=== PATIENT | male | born 1985 | race Caucasian/White ===

== ENCOUNTER 2024-02-23 17:41 | Inpatient (IN) ==
[2024-02-23 18:12] LABS: Basophils # (auto) 0.05 K/uL (0.00-0.20); Basophils % (auto) 0.4 %; Eosinophils % (auto) 2.9 %; Hematocrit (blood only) 45.8 % (42.0-52.0); Hemoglobin 15.2 g/dl (14.0-18.0); Immature Granulocytes # (auto) 0.08 K/uL (0.01-0.20); Immature Granulocytes % (auto) 0.6 %; Mean Corpuscular Hemoglobin 28.1 pg (25.0-34.0); Mean Corpuscular Hgb Conc 33.2 g/dL (32.0-36.0); Mean Corpuscular Volume 84.7 fL (80.0-100.0); Mean Platelet Volume 8.6 fL (9.4-12.4); Monocytes # (auto) 0.96 K/uL (0.11-0.59); Neutrophils % (auto) 68.1 %; Platelet Count 302 K/uL (130-400); RDW Coefficient of Variation 13.6 % (11.5-14.5); RDW Standard Deviation 41.7 fL (36.4-46.3); Red Blood Count 5.41 M/uL (4.70-6.10); White Blood Count 13.79 K/ul (4.8-10.8)
--- NOTE | 2024-02-23 18:17 | XRay Report ---
XR chest 1V not portable CLINICAL HISTORY: Chest pain, nonspecific TECHNIQUE: Single frontal radiograph of the chest was obtained. Comparison: Comparison is made to chest radiograph 12/14/2020 FINDINGS: No lines and tubes are seen. The cardiomediastinal silhouette is normal. The lungs are clear. No evid ence of pleural effusion or pneumothorax. IMPRESSION: No acute chest disease. ACT 112: Negative or not required by law. Electronically signed by: Jorge Franco M.D. 02/23/2024 6:15 PM
[2024-02-23 18:33] LABS: Albumin Level 4.6 gm/dl (3.4-5.0); BUN Creatinine Ratio 10.4 (10-20); Bilirubin,Total 0.4 mg/dl (0.2-1.0); Calcium 9.7 mg/dl (8.6-10.3); Creatinine Clr Calc Pharmacy 120.4 ml/min; Est GFR (African American) 92.4 ml/min; Est GFR (Non-African American) 79.7 ml/min; Globulin 4.4 gm/dl (2.5-4.0); Potassium 3.9 mmol/L (3.5-5.1)
[2024-02-23 18:39] LABS: Troponin I High Sensitivity 14.9 pg/ml (0-20)
[2024-02-23 18:41] LABS: INR 0.9 (0.9-1.1); Partial Thromboplastin Time 27 Seconds (21-31); Prothrombin Time 10.2 Seconds (9.0-12.0)
[2024-02-23] MEDS: hydrALAZINE HCL 20 MG/ML VIAL IV STA ×2 (19:04→20:24)
--- NOTE | 2024-02-23 19:06 | Emergency Department Note ---
Impression & Plan Acute dyspnea, Hypertensive urgency, Acute gout of left foot ED Provider Note HISTORY OF PRESENT ILLNESS: Patient is a 38-year-old male presenting with left great toe pain and hypertension. Patient reports he woke up at 2 AM from sleep with significant pain in his left great toe. He states that it hurts to bear weight on the foot secondary to pain at the base of the great toe. He denies ever having pain like this before. Denies any history of gout. He denies any fevers. He reports he went to acute care in [place] and they noted that his blood pressure was 200s over 130s and his heart rate was 110 to 118 bpm. He states he has a history of hypertension, but his pressures have never been higher than 170s. He states he has not taken his antihypertensives today, as he takes them in the evening. He denies any chest pain or shortness of breath. Denies any lightheadedness or dizziness. He denies any DVT or PE history. Denies any anticoagulation use. Denies any history of cardiac stents. ROS: as above PHYSICAL EXAM: Constitutional: Patient appears in no acute distress. HENT: Head: Normocephalic and atraumatic. Eyes: EOMI, PERRL Mouth/Throat: Mucous membranes moist. Neck: Trachea midline. Neck supple. Cardiovascular: Tachycardic with regular rhythm. No murmurs, rubs or gallops. Intact distal pulses. Pulmonary/Chest: No respiratory distress. Breath sounds clear and equal bilaterally. Patient is conversationally dyspneic. Abdominal: Abdomen soft, no tenderness, rebound or guarding. Musculoskeletal: - LLE: No obvious open wounds or deformity. No overlying erythema to the base of the great toe. Patient has palpable DP and PT pulses. Able to dorsiflex and plantarflex the ankle. Patient does have pain with passive range of motion of the great toe. Skin: Warm and dry. No rash, erythema, pallor or cyanosis Psychiatric: Appropriate mood and affect for situation. Neurological: Alert and keenly responsive. CN II-XII grossly intact, moving all extremities equally and fully. MDM: - Vitals signs showed hypertension and tachycardia - History obtained via patient. History as above. - Chronic conditions affecting care: HTN; hypothyroidism - Differential diagnoses include, but are not limited to: PE; pneumonia; ACS; gout; foot fracture - Order placed for continuous cardiac monitoring. At this time, monitor showed rate of 78 bpm with normal sinus rhythm, per my interpretation. - External medical records reviewed. [facility] orthopedic note dated 11/16/2020 was reviewed. Patient follow-up in their clinic for trochanteric bursitis of the left hip - EKG interpreted by myself showed normal sinus rhythm. Rate tachycardic at 113 bpm. QT 346. No acute ischemic changes. - Laboratory workup interpreted by myself showed leukocytosis (WBC 13.79); normal PT/INR; stable electrolytes; normal troponin; normal creatinine - CXR negative for pneumonia, per my interpretation - Patient given 40 mg IV solumedrol and 50 mg IV benadryl for pretreatment for CT scan. - CT PE negative for PE. - Patient initially given 10 mg IV hydralazine and 50 mcg IV fentanyl for HTN and pain, with little improvement in BP. - Given an additional 10 mg IV hydralazine, home 100 mg losaratan and 100 mg IV lopressor. BPs remained >190s systolic - Discussion was had with residential case manager about patient's case and need for admission - Hospitalist consulted for admission - Patient admitted to [facility] hospitalist service for further evaluation and management. ASSESSMENT AND PLAN: Diagnosis: acute dyspnea; acute gout of left foot; HTN urgency Plan: admit Past Med/Surg History Problem List (Updated 02/23/24 @ 22:43 by Ruby Tobin MD) Acute gout of left foot (Acute) Hypertensive urgency (Acute) Acute dyspnea (Acute) History of bursectomy endoscopic left hip December 2020 Encounter for pre-operative examination Strep throat Left hip pain Greater trochanteric bursitis of left hip Left carpal tunnel syndrome Trochanteric bursitis, left hip Hypothyroidism (Chronic) Medical History (Updated 02/23/24 @ 22:43 by Ruby Tobin MD) Morbid obesity Carpal tunnel syndrome of left wrist Migraine hx Sleep apnea CPAP (compliant) Surgical History (Updated 01/02/21 @ 12:47 by Daniel Rojo MD) History of cardiac cath 2018 > "widely patent and normal coronary anatomy" History of tooth extraction WTE History of cystoscopy + urethral dilitation History of colonoscopy Hx of tonsillectomy Family History Mother Diabetes Grandfather (Maternal) Diabetes Grandmother (Paternal) Diabetes Grandmother (Maternal) Diabetes Family hx of colon cancer Aunt Diabetes Aunt Diabetes Uncle Diabetes Aunt Diabetes Other Stroke Social History Smoking Status: Never smoker Second Hand Exposure: No; Do You Dip or Chew Tobacco: No; Hx Alcohol Use: Yes Alcohol type: beer Hx Substance Use: No Preferred Language: Russian Communication Ability: Effective 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 Beliefs That Will Affect Care: None Current Living Situation: Alone and Family Feels Safe at Home: Yes Assistive Devices: Glasses Allergies Allergies Allergy/AdvReac Type Severity Reaction Status Date / Time Iodinated Contrast Media Allergy Intermediate Hives Verified 02/23/24 19:05 oxycodone Allergy Intermediate Hives Verified 02/23/24 19:05 Home Meds Home Medications Medication Instructions Recorded Confirmed loratadine 10 mg tablet (Claritin) 10 mg PO DAILY 12/20/20 02/23/24 chlorthalidone 25 mg tablet 25 mg PO QAM 02/23/24 02/23/24 levothyroxine 200 mcg tablet 200 mcg PO QAM 02/23/24 02/23/24 losartan 100 mg tablet 100 mg PO DAILY 02/23/24 02/23/24 metoprolol succinate 100 mg 100 mg PO DAILY 02/23/24 02/23/24 tablet,extended release 24 hr ondansetron HCl 8 mg tablet 8 mg PO TID PRN Nausea And Vomiting 02/23/24 02/23/24 Results & Data (ED) Vital Signs Vital Signs - 24 hr 02/23/24 17:44 02/23/24 19:02 02/23/24 19:02 Temperature 36.7 C Temperature Source Temporal Artery Scan Pulse Rate 112 H Pulse Rate [Apical] 106 H Respiratory Rate 18 23 Respiratory Effort / Characteristics Non-Labored Spontaneous Respiratory Depth Normal Blood Pressure 226/156 H Blood Pressure [Left Arm] 189/126 H Blood Pressure Mean 179 Blood Pressure Mean [Left Arm] 147 Blood Pressure Position Sitting Pulse Oximetry 96 94 Oxygen Delivery Method Room Air Room Air Room Air Sepsis Recent Fever Within 48 Hours No Sepsis New/Unexplained Change in Mental Status No Sepsis Action Taken by Nursing No Action Required 02/23/24 19:03 02/23/24 19:27 02/23/24 19:30 Temperature Temperature Source Pulse Rate 102 H Pulse Rate [Apical] 110 H Respiratory Rate 17 Respiratory Effort / Characteristics Respiratory Depth Blood Pressure Blood Pressure [Left Arm] 154/123 H Blood Pressure Mean Blood Pressure Mean [Left Arm] 133 Blood Pressure Position Pulse Oximetry 95 96 Oxygen Delivery Method Room Air Room Air Sepsis Recent Fever Within 48 Hours Sepsis New/Unexplained Change in Mental Status Sepsis Action Taken by Nursing 02/23/24 20:23 02/23/24 20:51 02/23/24 21:00 Temperature Temperature Source Pulse Rate Pulse Rate [Apical] 98 H 97 H 91 H Respiratory Rate 18 Respiratory Effort / Characteristics Respiratory Depth Blood Pressure Blood Pressure [Left Arm] 207/136 H 197/104 H 191/99 H Blood Pressure Mean Blood Pressure Mean [Left Arm] 159 135 129 Blood Pressure Position Pulse Oximetry 95 Oxygen Delivery Method Room Air Sepsis Recent Fever Within 48 Hours Sepsis New/Unexplained Change in Mental Status Sepsis Action Taken by Nursing 02/23/24 21:56 Temperature Temperature Source Pulse Rate Pulse Rate [Apical] 78 Respiratory Rate Respiratory Effort / Characteristics Respiratory Depth Blood Pressure Blood Pressure [Left Arm] 165/110 H Blood Pressure Mean Blood Pressure Mean [Left Arm] 128 Blood Pressure Position Pulse Oximetry Oxygen Delivery Method Sepsis Recent Fever Within 48 Hours Sepsis New/Unexplained Change in Mental Status Sepsis Action Taken by Nursing Laboratory Data 02/23/24 17:55 02/23/24 17:55 Lab Results 02/23/24 Range/Units 17:55 WBC 13.79 H (4.8-10.8) K/ul RBC 5.41 (4.70-6.10) M/uL Hgb 15.2 (14.0-18.0) g/dl Hct 45.8 (42.0-52.0) % MCV 84.7 (80.0-100.0) fL MCH 28.1 (25.0-34.0) pg MCHC 33.2 (32.0-36.0) g/dL RDW Std Deviation 41.7 (36.4-46.3) fL RDW Coeff of Roe 13.6 (11.5-14.5) % Plt Count 302 (130-400) K/uL MPV 8.6 L (9.4-12.4) fL Immature Gran % (Auto) 0.6 % Neut % (Auto) 68.1 % Lymph % (Auto) 21.0 % [place] % (Auto) 7.0 % Eos % (Auto) 2.9 % Baso % (Auto) 0.4 % Neut # (Auto) 9.40 H (1.40-6.50) K/uL Lymph # (Auto) 2.90 (1.20-3.40) K/uL [place] # (Auto) 0.96 H (0.11-0.59) K/uL Eos # (Auto) 0.40 (0.00-0.50) K/uL Baso # (Auto) 0.05 (0.00-0.20) K/uL Immature Gran # (Auto) 0.08 (0.01-0.20) K/uL PT 10.2 (9.0-12.0) Seconds INR 0.9 (0.9-1.1) APTT 27 (21-31) Seconds PTT Ratio 1.0 Sodium 139 (136-145) mmol/L Potassium 3.9 (3.5-5.1) mmol/L Chloride 104 (98-107) mmol/L Carbon Dioxide 27 (21-32) mmol/L Anion Gap 8 (3-11) BUN 12 (6-23) mg/dl Creatinine 1.15 (0.6-1.4) mg/dl Est Cr Clr Drug Dosing 120.4 ml/min Est GFR ( Amer) 92.4 ml/min Est GFR (Non-Af Amer) 79.7 ml/min BUN/Creatinine Ratio 10.4 (10-20) Glucose 89 (70-99(Fasting)) mg/dl Calcium 9.7 (8.6-10.3) mg/dl Total Bilirubin 0.4 (0.2-1.0) mg/dl AST 26 (13-39) U/L ALT 27 (7-52) U/L Alkaline Phosphatase 73 (34-104) U/L Troponin I High Sens 14.9 (0-20) pg/ml Total Protein 9.0 H (6.0-8.3) gm/dl Albumin 4.6 (3.4-5.0) gm/dl Globulin 4.4 H (2.5-4.0) gm/dl Albumin/Globulin Ratio 1.0 (0.9-2) Administered Medications Discontinued Medications Diphenhydramine HCl (Diphenhydramine 50 Mg/Ml Vial) 25 mg IV NOW STA Stop: 02/23/24 18:13 Last Admin: 02/23/24 19:27 Dose: 25 mg Documented By: COREY Fentanyl Citrate (Fentanyl Citrate Pf 100 Mcg/2 Ml Vial) 50 mcg IV NOW STA Stop: 02/23/24 19:04 Last Admin: 02/23/24 19:17 Dose: 50 mcg Documented By: COREY Hydralazine HCl (Hydralazine Hcl 20 Mg/Ml Vial) 10 mg IV NOW STA Stop: 02/23/24 18:44 Last Admin: 02/23/24 19:04 Dose: 10 mg Documented By: COREY Hydralazine HCl (Hydralazine Hcl 20 Mg/Ml Vial) 10 mg IV NOW STA Stop: 02/23/24 20:12 Last Admin: 02/23/24 20:24 Dose: 10 mg Documented By: COREY Ioversol (Optiray 320 125ml) 107 ml IV ONCE ONE Stop: 02/23/24 19:49 Last Admin: 02/23/24 19:48 Dose: 107 ml Documented By: MAU Losartan Potassium (Losartan Potassium 50 Mg Tab) 100 mg PO NOW STA Stop: 02/23/24 20:11 Last Admin: 02/23/24 20:26 Dose: 100 mg Documented By: COREY Methylprednisolone (Methylprednisolone 125 Mg/2 Ml Vial) 40 mg IV NOW STA Stop: 02/23/24 18:13 Last Admin: 02/23/24 19:30 Dose: 40 mg Documented By: COREY Metoprolol Tartrate (Metoprolol Tartrate 100 Mg Tab) 100 mg PO NOW STA Stop: 02/23/24 20:11 Last Admin: 02/23/24 20:26 Dose: 100 mg Documented By: COREY Imaging Data Radiologist's Impression: Chest X-Ray 02/23/24 17:48 XR chest 1V not portable CLINICAL HISTORY: Chest pain, nonspecific TECHNIQUE: Single frontal radiograph of the chest was obtained. Comparison: Comparison is made to chest radiograph 12/14/2020 FINDINGS: No lines and tubes are seen. The cardiomediastinal silhouette is normal. The lungs are clear. No evidence of pleural effusion or pneumothorax. IMPRESSION: No acute chest disease. ACT 112: Negative or not required by law. Electronically signed by: Jorge Franco M.D. 02/23/2024 6:15 PM Chest CTA 02/23/24 18:12 Exam(s): CTA CHEST IV Amt: 107 ml opti 320 EXAM: CT Angiography Chest With Intravenous Contrast CLINICAL HISTORY: Reason for exam: PE. TECHNIQUE: Axial computed tomographic angiography images of the chest with intravenous contrast. CTDI is 50 mGy and DLP is 1055.95 mGy-cm. Automated exposure control was utilized for the study. A dose lowering technique was utilized adhering to the principles of ALARA. MIP reconstructed images were created and reviewed. COMPARISON: No relevant prior studies available. FINDINGS: Pulmonary arteries: The pulmonary arterial tree is well opacified with contrast. No pulmonary embolism is identified. Aorta: The thoracic aorta is nondilated. There is no aneurysm or dissection. Superior vena cava: Incidental note is made of a left-sided superior vena cava. This is a normal variant. Lungs: The lungs are clear. There is mild vascular congestion and a trace amount of bibasilar subsegmental atelectasis, less likely edema. No mass. Pleural space: Unremarkable. No significant effusion. No pneumothorax. Heart: The heart is borderline enlarged. No pericardial effusion is seen. No evidence of RV dysfunction. Bones/joints: Mild degenerative changes throughout the spine. No acute fracture or subluxation is seen. Soft tissues: Unremarkable. Lymph nodes: Unremarkable. No enlarged lymph nodes. Liver: Fatty infiltration of the liver. IMPRESSION: 1. The lungs are clear. There is mild vascular congestion and a trace amount of bibasilar subsegmental atelectasis, less likely edema. 2. The pulmonary arterial tree is well opacified with contrast. No pulmonary embolism is identified. 3. The thoracic aorta is nondilated. There is no aneurysm or dissection. Electronically signed by: Elmer Loo MD 02/23/24 20:38 PM Discharge Plan Visit Data Chief Complaint: Cardiac Assessment Stated Complaint: TACHYCARDIA, HIGH BP ED Provider: Ruby Tobin Discharge Problem: Acute dyspnea, Hypertensive urgency, Acute gout of left foot Forms Stand Alone Forms: [facility] Labs Prescriptions Prescriptions: No Action loratadine [Claritin] 10 mg Tablet 10 mg PO DAILY Rx Instructions: Unable to verify with patient at this date/time ondansetron HCl 8 mg tablet 8 mg PO TID PRN (Reason: Nausea And Vomiting) metoprolol succinate 100 mg tablet extended release 24 hr 100 mg PO DAILY chlorthalidone 25 mg tablet 25 mg PO QAM levothyroxine 200 mcg tablet 200 mcg PO QAM losartan 100 mg tablet 100 mg PO DAILY Referrals Referrals: Emily Marshall MD [Primary Care Provider] -
[2024-02-23] MEDS: fentaNYL citrate PF 100 MCG/2 ML VIAL IV STA (19:17)
[2024-02-23] MEDS: diphenhydrAMINE 50 MG/ML VIAL IV STA (19:27)
[2024-02-23] MEDS: methylPREDNISolone 125 MG/2 ML VIAL IV STA (19:30)
[2024-02-23] MEDS: OPTIRAY 320 125ml IV ONE (19:48)
[2024-02-23] MEDS: METOPROLOL TARTRATE 100 MG TAB PO STA (20:26)
[2024-02-23] MEDS: LOSARTAN POTASSIUM 50 MG TAB PO STA (20:26)
--- NOTE | 2024-02-23 20:39 | CT Scan Report ---
Exam(s): CTA CHEST IV Amt: 107 ml opti 320 EXAM: CT Angiography Chest With Intravenous Contrast CLINICAL HISTORY: Reason for exam: PE. TECHNIQUE: Axial computed tomographic angiography images of the chest with intravenous contrast. CTDI is 50 mGy and DLP is 1055.95 mGy-cm. Automated exposure control was utilized for the study. A dose lowering technique was utilized adhering to the principles of ALARA. MIP reconstructed images were created and reviewed. COMPARISON: No relevant prior studies available. FINDINGS: Pulmonary arteries: The pulmonary arterial tree is well opacified with contrast. No pulmonary embolism is identified. Aorta: The thoracic aorta is nondilated. There is no aneurysm or dissection. Superior vena cava: Incidental note is made of a left-sided superior vena cava. This is a normal variant. Lungs: The lungs are clear. There is mild vascular congestion and a trace amount of bibasilar subsegmental atelectasis, less likely edema. No mass. Pleural space: Unremarkable. No significant effusion. No pneumothorax. Heart: The heart is borderline enlarged. No pericardial effusion is seen. No evidence of RV dysfunction. Bones/joints: Mild degenerative changes throughout the spine. No acute fracture or subluxation is seen. Soft tissues: Unremarkable. Lymph nodes: Unremarkable. No enlarged lymph nodes. Liver: Fatty infiltration of the liver. IMPRESSION: 1. The lungs are clear. There is mild vascular congestion and a trace amount of bibasilar subsegmental atelectasis, less likely edema. 2. The pulmonary arterial tree is well opacified with contrast. No pulmonary embolism is identified. 3. The thoracic aorta is nondilated. There is no aneurysm or dissection. Electronically signed by: Elmer Loo MD 02/23/24 20:38 PM
--- NOTE | 2024-02-23 22:36 | History & Physical Report ---
Date of Service February 23, 2024 Assessment & Plan (1) Acute gout of left foot: Plan: Suspect pain in left foot is secondary to acute gout. Patient with no history of gout -Admit to medical -[facility] for acute gout - 1.2mg po now followed by 0.6mg in one hour then 0.6mg po BID -Check serum Uric Acid level -Tylenol PRN (2) Hypertensive urgency: Plan: Patient reports compliance with his antihypertensive medications. Blood pressure still 150-160's at home typically. He is on Chlorthalidone, Losartan and Metoprolol at present. Hypertensive urgency. No evidence of end-organ damage. -Will hold Chlorthalidone for now -Continue Losartan and Metoprolol -Hydralazine 10 mg po TID as needed for blood pressure > 180/110 -Will check Mg, Aldosterone level and Plasma Renin Activity -Continue BiPAP qHS (3) Hypothyroidism: Plan: Patient reports noncompliance with his Synthroid - difficulty timing this medication -Check TSH -Continue Synthroid (4) Sleep apnea: Plan: Chronic. Patient reports compliance with his BiPAP qHS -Continue BiPAP History of Present Illness Chief Complaint: toe pain Primary Care Provider: Emily Marshall MD Brett Vidales is a 38yo male with history of poorly controlled HTN, HUSSAIN on nocturnal BiPAP and Hypothyroidism presenting from home with complaint of acute onset of left great toe pain and hypertension. Patient reports acute onset of severe pain in the left great toe at the MTP joint beginning this AM 02/23/24 at 02:00. He took some Ibuprofen without improvement in pain. Patient was able to put his shoes and work today but he had a lot of discomfort. He denies trauma. No history of Gout. No additional joint pain. Patient was seen at Urgent Care today and had an elevated HR and blood pressure of 200's/130's therefore was sent to the ER. He reports that his blood pressure is typically 150-160 at home with his medication. He is compliant with his antihypertensives. He denies headache, blurry vision, focal neurologic complaints. No chest pain, SOB or back pain. No fever, chills. No additional complaints. In the ER patient hypertensive. ER Course: Metoprolol 100mg PO Losartan 100mg PO Hydralazine 10mg IV Solumedrol 40mg IV Benadryl 25mg IV Fentanyl 50mcg IV Hydralazine 10mg IV Allergies Allergy/AdvReac Type Severity Reaction Status Date / Time Iodinated Contrast Media Allergy Intermediate Hives Verified 02/23/24 19:05 oxycodone Allergy Intermediate Hives Verified 02/23/24 19:05 Home Medications Medication Instructions Recorded Confirmed Type loratadine 10 mg tablet (Claritin) 10 mg PO DAILY 12/20/20 02/23/24 History chlorthalidone 25 mg tablet 25 mg PO QAM 02/23/24 02/23/24 History levothyroxine 200 mcg tablet 200 mcg PO QAM 02/23/24 02/23/24 History losartan 100 mg tablet 100 mg PO DAILY 02/23/24 02/23/24 History metoprolol succinate 100 mg 100 mg PO DAILY 02/23/24 02/23/24 History tablet,extended release 24 hr ondansetron HCl 8 mg tablet 8 mg PO TID PRN Nausea And Vomiting 02/23/2402/22 History Past Med/Surg History Problem List Acute gout of left foot (Acute) Hypertensive urgency (Acute) Acute dyspnea (Acute) History of bursectomy endoscopic left hip December 2020 Encounter for pre-operative examination Strep throat Left hip pain Greater trochanteric bursitis of left hip Left carpal tunnel syndrome Trochanteric bursitis, left hip Hypothyroidism (Chronic) Medical History Morbid obesity Carpal tunnel syndrome of left wrist Migraine hx Sleep apnea CPAP (compliant) Surgical History History of cardiac cath 2018 > "widely patent and normal coronary anatomy" History of tooth extraction WTE History of cystoscopy + urethral dilitation History of colonoscopy Hx of tonsillectomy Family History Mother Diabetes Grandfather (Maternal) Diabetes Grandmother (Paternal) Diabetes Grandmother (Maternal) Diabetes Family hx of colon cancer Aunt Diabetes Aunt Diabetes Uncle Diabetes Aunt Diabetes Other Stroke Social History Smoking Status: Never smoker Second Hand Exposure: No; Do You Dip or Chew Tobacco: No; Hx Alcohol Use: Yes Alcohol type: beer Hx Substance Use: No Preferred Language: Jamaican Communication Ability: Effective [employer] Director Required: No Beliefs That Will Affect Care: None Current Living Situation: Alone and Family Feels Safe at Home: Yes Assistive Devices: Glasses Review of Systems Review of Systems: All systems reviewed & are unremarkable except as noted in HPI & below Physical Exam Physical Exam: General: patient resting comfortably, NAD, non-toxic in appearance, AA&O x 4 Skin: warm, dry, intact, no rashes or lesions HEENT: NC/AT, PERRL, EOMI, anicteric sclera, conjunctiva without injection, external ear normal to inspection and nontender, nares patent, moist mucus membranes, dentition intact, no oropharyngeal lesions, neck supple, trachea midline, no LAD, no thyromegaly, no JVD Heart: +S1/S2, regular, no m/r/g Lungs: equal air entry bilaterally, no rales/rhonchi/wheezes Abd: +BS, soft, NT/ND, no masses/organomegaly/ascites Ext: warm, 2+ pulses in UE/LE bilaterally, no clubbing/cyanosis or edema Warmth and redness of left great toe at MTP joint. Exquisite tenderness to palpation. No cellulitis. Neuro: nonfocal, patient AA&O x 4, speech intact, no facial droop, moving all extremities on command with equal strength 5/5 Results & Data Results & Data Vital Signs (Past 12 Hours) Vital Signs Temp Pulse Pulse Resp BP BP Pulse Ox 02/23/24 21:56 78 165/110 H 02/23/24 21:00 91 H 18 191/99 H 95 02/23/24 20:51 97 H 197/104 H 02/23/24 20:23 98 H 207/136 H 02/23/24 19:30 102 H 02/23/24 19:27 110 H 17 154/123 H 96 02/23/24 19:03 95 02/23/24 19:02 02/23/24 19:02 106 H 23 189/126 H 94 02/23/24 17:44 36.7 C 112 H 18 226/156 H 96 O2 Del Method 02/23/24 21:56 02/23/24 21:00 Room Air 02/23/24 20:51 02/23/24 20:23 02/23/24 19:30 02/23/24 19:27 Room Air 02/23/24 19:03 Room Air 02/23/24 19:02 Room Air 02/23/24 19:02 Room Air 02/23/24 17:44 Room Air Laboratory Results Laboratory Results WBC 13.79 K/ul (4.8-10.8) H 02/23/24 17:55 RBC 5.41 M/uL (4.70-6.10) 02/23/24 17:55 Hgb 15.2 g/dl (14.0-18.0) 02/23/24 17:55 Hct 45.8 % (42.0-52.0) 02/23/24 17:55 MCV 84.7 fL (80.0-100.0) 02/23/24 17:55 MCH 28.1 pg (25.0-34.0) 02/23/24 17:55 MCHC 33.2 g/dL (32.0-36.0) 02/23/24 17:55 RDW Std Deviation 41.7 fL (36.4-46.3) 02/23/24 17:55 RDW Coeff of Roe 13.6 % (11.5-14.5) 02/23/24 17:55 Plt Count 302 K/uL (130-400) 02/23/24 17:55 MPV 8.6 fL (9.4-12.4) L 02/23/24 17:55 Immature Gran % (Auto) 0.6 % 02/23/24 17:55 Neut % (Auto) 68.1 % 02/23/24 17:55 Lymph % (Auto) 21.0 % 02/23/24 17:55 [place] % (Auto) 7.0 % 02/23/24 17:55 Eos % (Auto) 2.9 % 02/23/24 17:55 Baso % (Auto) 0.4 % 02/23/24 17:55 Neut # (Auto) 9.40 K/uL (1.40-6.50) H 02/23/24 17:55 Lymph # (Auto) 2.90 K/uL (1.20-3.40) 02/23/24 17:55 [place] # (Auto) 0.96 K/uL (0.11-0.59) H 02/23/24 17:55 Eos # (Auto) 0.40 K/uL (0.00-0.50) 02/23/24 17:55 Baso # (Auto) 0.05 K/uL (0.00-0.20) 02/23/24 17:55 Immature Gran # (Auto) 0.08 K/uL (0.01-0.20) 02/23/24 17:55 PT 10.2 Seconds (9.0-12.0) 02/23/24 17:55 INR 0.9 (0.9-1.1) 02/23/24 17:55 APTT 27 Seconds (21-31) 02/23/24 17:55 PTT Ratio 1.0 02/23/24 17:55 Sodium 139 mmol/L (136-145) 02/23/24 17:55 Potassium 3.9 mmol/L (3.5-5.1) 02/23/24 17:55 Chloride 104 mmol/L (98-107) 02/23/24 17:55 Carbon Dioxide 27 mmol/L (21-32) 02/23/24 17:55 Anion Gap 8 (3-11) 02/23/24 17:55 BUN 12 mg/dl (6-23) 02/23/24 17:55 Creatinine 1.15 mg/dl (0.6-1.4) 02/23/24 17:55 Est Cr Clr Drug Dosing 120.4 ml/min 02/23/24 17:55 Est GFR ( Amer) 92.4 ml/min 02/23/24 17:55 Est GFR (Non-Af Amer) 79.7 ml/min 02/23/24 17:55 BUN/Creatinine Ratio 10.4 (10-20) 02/23/24 17:55 Glucose 89 mg/dl (70-99(Fasting)) 02/23/24 17:55 Calcium 9.7 mg/dl (8.6-10.3) 02/23/24 17:55 Total Bilirubin 0.4 mg/dl (0.2-1.0) 02/23/24 17:55 AST 26 U/L (13-39) 02/23/24 17:55 ALT 27 U/L (7-52) 02/23/24 17:55 Alkaline Phosphatase 73 U/L (34-104) 02/23/24 17:55 Troponin I High Sens 14.9 pg/ml (0-20) 02/23/24 17:55 Total Protein 9.0 gm/dl (6.0-8.3) H 02/23/24 17:55 Albumin 4.6 gm/dl (3.4-5.0) 02/23/24 17:55 Globulin 4.4 gm/dl (2.5-4.0) H 02/23/24 17:55 Albumin/Globulin Ratio 1.0 (0.9-2) 02/23/24 17:55 Impressions Chest X-Ray 02/23/24 17:48 XR chest 1V not portable CLINICAL HISTORY: Chest pain, nonspecific TECHNIQUE: Single frontal radiograph of the chest was obtained. Comparison: Comparison is made to chest radiograph 12/14/2020 FINDINGS: No lines and tubes are seen. The cardiomediastinal silhouette is normal. The lungs are clear. No evidence of pleural effusion or pneumothorax. IMPRESSION: No acute chest disease. ACT 112: Negative or not required by law. Electronically signed by: Jorge Franco M.D. 02/23/2024 6:15 PM Chest CTA 02/23/24 18:12 Exam(s): CTA CHEST IV Amt: 107 ml opti 320 EXAM: CT Angiography Chest With Intravenous Contrast CLINICAL HISTORY: Reason for exam: PE. TECHNIQUE: Axial computed tomographic angiography images of the chest with intravenous contrast. CTDI is 50 mGy and DLP is 1055.95 mGy-cm. Automated exposure control was utilized for the study. A dose lowering technique was utilized adhering to the principles of ALARA. MIP reconstructed images were created and reviewed. COMPARISON: No relevant prior studies available. FINDINGS: Pulmonary arteries: The pulmonary arterial tree is well opacified with contrast. No pulmonary embolism is identified. Aorta: The thoracic aorta is nondilated. There is no aneurysm or dissection. Superior vena cava: Incidental note is made of a left-sided superior vena cava. This is a normal variant. Lungs: The lungs are clear. There is mild vascular congestion and a trace amount of bibasilar subsegmental atelectasis, less likely edema. No mass. Pleural space: Unremarkable. No significant effusion. No pneumothorax. Heart: The heart is borderline enlarged. No pericardial effusion is seen. No evidence of RV dysfunction. Bones/joints: Mild degenerative changes throughout the spine. No acute fracture or subluxation is seen. Soft tissues: Unremarkable. Lymph nodes: Unremarkable. No enlarged lymph nodes. Liver: Fatty infiltration of the liver. IMPRESSION: 1. The lungs are clear. There is mild vascular congestion and a trace amount of bibasilar subsegmental atelectasis, less likely edema. 2. The pulmonary arterial tree is well opacified with contrast. No pulmonary embolism is identified. 3. The thoracic aorta is nondilated. There is no aneurysm or dissection. Electronically signed by: Elmer Loo MD 02/23/24 20:38 PM PG Care Time/CCT Total # of Minutes Spent Total Time Spent with Patient: Total time spent is greater than 50% in coordination of care (as documented) at patient's floor/unit and/or counseling patient: Coding Level of Care Code 49088 INT INP/OBS CARE 3/75MIN Diagnoses Acute gout of left foot M10.9 Hypertensive urgency I16.0 Hypothyroidism E03.9 Sleep apnea G47.30
[2024-02-24] MEDS ORDERED: ACETAMINOPHEN 325 MG TAB PO PRN (01:16)
[2024-02-24] MEDS ORDERED: ONDANSETRON INJ 2 MG/ML 2 ML VIAL IV PRN (01:16)
[2024-02-24] MEDS: fentaNYL citrate PF 100 MCG/2 ML VIAL IV ONE (01:20)
[2024-02-24 01:38] LABS: Magnesium 2.3 mg/dl (1.7-2.4); Uric Acid 7.4 mg/dl (2.6-7.2)
[2024-02-24] MEDS: hydrALAZINE 10 MG TAB PO PRN (01:43)
[2024-02-24] MEDS: COLCHICINE 0.6 MG TAB PO ONE ×2 (01:43→02:59)
[2024-02-24 01:53] LABS: Thyroid Stimulating Hormone 10.188 uIu/ml (0.300-4.500)
[2024-02-24 02:29] LABS: T4 Free Thyroxine 0.58 ng/dl (0.61-1.60)
[2024-02-24] MEDS: LEVOTHYROXINE SODIUM 200 MCG TABLET PO SCH (05:59)
[2024-02-24 06:14] LABS: Hematocrit (blood only) 43.2 % (42.0-52.0); Hemoglobin 14.6 g/dl (14.0-18.0); Mean Corpuscular Hemoglobin 28.5 pg (25.0-34.0); Mean Corpuscular Hgb Conc 33.8 g/dL (32.0-36.0); Mean Corpuscular Volume 84.2 fL (80.0-100.0); Mean Platelet Volume 8.9 fL (9.4-12.4); Platelet Count 292 K/uL (130-400); RDW Coefficient of Variation 13.7 % (11.5-14.5); Red Blood Count 5.13 M/uL (4.70-6.10); White Blood Count 12.98 K/ul (4.8-10.8)
[2024-02-24 06:39] LABS: BUN Creatinine Ratio 13.7 (10-20); Calcium 9.5 mg/dl (8.6-10.3); Est GFR (African American) 106.8 ml/min; Est GFR (Non-African American) 92.2 ml/min
[2024-02-24] MEDS: METOPROLOL SUCC 50MG EXT REL TAB PO SCH (07:50)
[2024-02-24] MEDS: LOSARTAN POTASSIUM 50 MG TAB PO SCH (07:50)
[2024-02-24] MEDS: LORATADINE 10 MG TAB PO SCH (07:50)
--- NOTE | 2024-02-24 08:59 | XRay Report ---
XR foot LT min 3V routine CLINICAL HISTORY: L great toe pain TECHNIQUE: 3 views of the left foot were obtained. Comparison: None available at the time of this dictation. FINDINGS: No fractures are present. Mild degenerative changes are seen with plantar and Achilles enthesophytes. No soft tissue abnormality is seen. IMPRESSION: Mild degenerative changes without evidence of acute fracture. No great toe abnormalities. ACT 112: Negative or not required by law. Electronically signed by: Jorge Franco M.D. 02/24/2024 8:57 AM
[2024-02-24] MEDS: amLODIPine BESYLATE 5 MG TAB PO ONE (14:25)
[2024-02-24] MEDS: COLCHICINE 0.6 MG TAB PO SCH (15:48)
--- NOTE | 2024-02-24 16:37 | Electrocardiogram Report ---
Test Reason : Blood Pressure : / mmHG Vent. Rate : 113 BPM Atrial Rate : 113 BPM P-R Int : 134 ms QRS Dur : 094 ms QT Int : 346 ms P-R-T Axes : 000 003 049 degrees QTc Int : 474 ms Sinus tachycardia Otherwise normal ECG When compared with ECG of 14-DEC-2020 12:47, Vent. rate has increased BY 37 BPM Nonspecific T wave abnormality no longer evident in Inferior leads Confirmed by Rodolfo Alvarez ([id number]) on 02/24/2024 4:36:30 PM Referred By: REFERRED SELF Confirmed By:Rodolfo Alvarez
--- NOTE | 2024-02-24 20:24 | Hospitalist Progress Note ---
Date of Service February 24, 2024 Assessment & Plan (1) Acute gout of left foot: Plan: left great toe podagra - improving with colchicine cont colchicine 0.6mg BID uric acid level noted (7.4) avoid thiazides avoid high purine foods give gout handout at discharge defer on prophylactic meds - first gout attack to his knowledge (2) Hypertensive urgency: Plan: Continue Losartan and Metoprolol Add amlodipine 5mg daily Hydralazine 10 mg po TID PRN BP > 180/110 Aldosterone level and Plasma Renin Activity send/pending TSH wnl cont BIPAP for HUSSAIN (3) Hypothyroidism: Plan: Patient reports noncompliance with his Synthroid TSH elevated at 10 c/w noncompliance Simply resume synthroid Recheck TSH as outpatient in 4-6 weeks (4) Sleep apnea: Plan: cont BIPAP (5) Morbid obesity: Plan: BMI 49 Plan anticipate d/c home in am if BPs are improved Admission and Anticipated Discharge Date Admission Date: February 23, 2024 Subjective left great toe pain/swelling improved can weight bear more comfortably today has never had gout before despite chlorthalidone being on med list he only took the med 1x - has not been taking it otherwise denies alcohol use states his BPs at home are often 150s/160s at home compliant with BIPAP for HUSSAIN Review of Systems Review of Systems: CV - no chest pain pulm - denies dyspnea at rest GI - no abd pain or n/v Physical Exam Physical Exam: gen - morbidly obese, NAD neck - no obvious JVD mouth - MMM heart - RRR, s1 s2, no murmur lungs - CTA b/l abd - soft NT ND BS+ musculo - left great toe podagra improved; still with swelling and tenderness but improved per patient; no erythema ext - no generalized edema, pulses 2+ b/l Results & Data Results & Data Vital Signs (Past 12 Hours) Vital Signs Temp Pulse Pulse Resp BP Pulse Ox O2 Del Method 02/24/24 19:15 36.6 C 87 18 149/92 H 95 Room Air 02/24/24 16:57 180/111 H 02/24/24 16:56 163/89 H 02/24/24 15:25 88 02/24/24 14:56 36.5 C 87 18 189/93 H 95 Room Air 02/24/24 11:55 36.8 C 96 H 18 191/82 H 93 Room Air 02/24/24 08:36 36.6 C 104 H 19 174/92 H 92 Room Air Laboratory Results Laboratory Results - last 24 hr 02/24/24 05:45 WBC 12.98 H RBC 5.13 Hgb 14.6 Hct 43.2 MCV 84.2 MCH 28.5 MCHC 33.8 RDW Std Deviation 42.0 RDW Coeff of Roe 13.7 Plt Count 292 MPV 8.9 L Sodium 138 Potassium 4.0 Chloride 105 Carbon Dioxide 24 Anion Gap 9 BUN 14 Creatinine 1.02 Est Cr Clr Drug Dosing 137.0 Est GFR ( Amer) 106.8 Est GFR (Non-Af Amer) 92.2 BUN/Creatinine Ratio 13.7 Glucose 171 H Calcium 9.5 Renin Activity Pending Aldosterone Pending PG Care Time/CCT Total # of Minutes Spent Total Time Spent with Patient: Total time spent is greater than 50% in coordination of care (as documented) at patient's floor/unit and/or counseling patient: Coding Level of Care Code 82529 SUB INP/OBS CARE 2/35MIN Diagnoses Acute gout of left foot M10.9 Hypertensive urgency I16.0 Hypothyroidism E03.9 Sleep apnea G47.30 Morbid obesity E66.01
[2024-02-25] MEDS: amLODIPine BESYLATE 5 MG TAB PO SCH (08:33)
--- NOTE | 2024-02-25 12:21 | Discharge Summary ---
Date of Service February 25, 2024 Admission HPI Per Admitting Provider Brett Vidales is a 38yo male with history of poorly controlled HTN, HUSSAIN on nocturnal BiPAP and Hypothyroidism presenting from home with complaint of acute onset of left great toe pain and hypertension. Patient reports acute onset of severe pain in the left great toe at the MTP joint beginning this AM 02/23/24 at 02:00. He took some Ibuprofen without improvement in pain. Patient was able to put his shoes and work today but he had a lot of discomfort. He denies trauma. No history of Gout. No additional joint pain. Patient was seen at Urgent Care today and had an elevated HR and blood pressure of 200's/130's therefore was sent to the ER. He reports that his blood pressure is typically 150-160 at home with his medication. He is compliant with his antihypertensives. He denies headache, blurry vision, focal neurologic complaints. No chest pain, SOB or back pain. No fever, chills. No additional complaints. In the ER patient hypertensive. ER Course: Metoprolol 100mg PO Losartan 100mg PO Hydralazine 10mg IV Solumedrol 40mg IV Benadryl 25mg IV Fentanyl 50mcg IV Hydralazine 10mg IV Discharge Exam gen - morbidly obese, NAD neck - no obvious JVD mouth - MMM heart - RRR, s1 s2, no murmur lungs - CTA b/l abd - soft NT ND BS+ musculo - left great toe podagra improved; still with swelling and tenderness but improved per patient; no erythema ext - no generalized edema, pulses 2+ b/l Discharge Data Allergies Allergy/AdvReac Type Severity Reaction Status Date / Time Iodinated Contrast Media Allergy Intermediate Hives Verified 02/23/24 19:05 oxycodone Allergy Intermediate Hives Verified 02/23/24 19:05 Consultations 02/23/24 22:17 ED Decision to Admit Stat Ordered Studies 02/23/24 18:12 CT for pulmonary embolism PE [CT angio chest PE protocol] Stat Hospital Course (1) Acute gout of left foot: left great toe podagra - improving with colchicine cont colchicine 0.6mg BID uric acid level noted (7.4) avoid thiazides avoid high purine foods give gout handout at discharge defer on prophylactic meds - first gout attack to his knowledge (2) Hypertensive urgency: Continue Losartan and Metoprolol Add amlodipine 5mg daily Hydralazine 10 mg po TID PRN BP > 180/110 Aldosterone level and Plasma Renin Activity send/pending TSH wnl cont BIPAP for HUSSAIN (3) Hypothyroidism: Patient reports noncompliance with his Synthroid TSH elevated at 10 c/w noncompliance Simply resume synthroid Recheck TSH as outpatient in 4-6 weeks (4) Sleep apnea: cont BIPAP (5) Morbid obesity: BMI 49 Plan anticipate d/c home in am if BPs are improved Discharge Plan Discharge Items Patient Disposition: Home - Self-Care Reason For Visit: TOE PAIN, HYPERTENSION Discharge Diagnosis: 1. left foot gout - improved 2. uncontrolled high blood pressure - improving 3. sleep apnea 4. chronic shortness of breath - follow-up with Dr Sin recommended 5. hypothyroidism - your TSH level was 10 - please have this repeated in about 1 month by your family doctor Activity: Resume your previous activity Activity Comment: as tolerated Non-emergency contact: Primary Care Provider and Tile E[employer]ctor Call non-emergency contact if: you have any medication questions, your symptoms worsen, your pain is not controlled and your pain is worsening Follow-up/Referrals: Emily Marshall MD [Primary Care Provider] - (Your PCP office is closed this week, please call next week on the for a hospital follow up appointment. Ideally please see Dr Marshall within 1 week. ) Kendall Sin [Outside Practitioners] - (see Dr Sin as scheduled within the next few weeks; please talk to him about obtaining "PFTs" (pulmonary function tests) ) Diet: Heart Healthy Addtl Attending Provider Instructions: Mr Vidales, You were treated for a gout attack of your left big toe. See handouts on gout and "gout diet." You improved with a medicine called colchicine. You also had very high blood pressure during your stay. Your blood pressure improved with the addition of another medicine called amlodipine. With respect to your chronic breathing issues the CT scan of your chest did not show any pneumonia or blood clots. If possible please have Dr Sin perform "pulmonary function tests" (PFTs) which looks for asthma and asthma-like conditions. Recommendations - 1. for your current left foot gout attack - * colchicine 0.6mg twice daily x 7 days, next dose tonight; most common side effect is diarrhea * if you need additional pain control you can take [id number] ibuprofen 600mg (3 tablets of 200mg each) every 8 hours as needed for the gout pain * if you get another gout attack in the future you can restart the colchicine and take it twice daily for about a week * if you do get recurrent gout attacks please see your family doctor as you may need medicine prescribed to you that prevents gout attacks 2. for high blood pressure - * take amlodipine 5mg every morning * most common side effects - swelling of feet and constipation * continue your metoprolol & losartan as previous * check your blood pressure daily at home; write your numbers down in a notebook and show these to your family doctor * be sure to bring your blood pressure cuff to your family doctor's appointment that way you can check to be sure that it is giving you accurate readings * please throw away the previously prescribed chlorthalidone as this medicine can induce gout attacks 3. for swelling of your feet/ankles you may take - * furosemide water pill (diuretic) - 20mg as needed, take in the morning if you have to use it; this pill will get rid of swelling in your feet/ankles 4. OK to start the medicine that was prescribed for your narcolepsy. Take that medicine as directed by the doctor that prescribed it to you. 5. Your TSH level, which is your thyroid level, was 10. This is high which means you may need a dose adjustment in your thyroid medicine in the future. Simply have your family doctor repeat your TSH level in about 4 weeks. Be sure to take your thyroid medicine EACH AND EVERY MORNING. 6. See handout on "DASH" diet. This is a healthy diet that has been shown to reduce blood pressure by limiting salt, etc. Follow-up - see separate section Return to [facility] if - * you have worsening pain in any joint, difficulty walking because of the joint pain, etc * you have worsening shortness of breath, chest pains, or headaches * any other concerns It was our pleasure to care for you! Pending Studies at Discharge: Yes Studies:: renin/aldosterone levels (hormone levels that, if elevated, can cause difficult to control blood pressure) Stand-Alone Forms: My [facility], Smoking Cessation Medications and DC Order Prescriptions: New amlodipine [Norvasc] 5 mg Tablet 5 mg PO QAM Qty: 30 2RF Rx Instructions: for high blood pressure colchicine [Colcrys] 0.6 mg Tablet 0.6 mg PO BID PRN (Reason: gout attack) Qty: 30 0RF Rx Instructions: take for 1 week then stop. furosemide [Lasix] 20 mg tablet 20 mg PO QAM PRN (Reason: swelling of feet/ankles ) Qty: 15 0RF Continued loratadine [Claritin] 10 mg Tablet 10 mg PO DAILY Rx Instructions: Unable to verify with patient at this date/time ondansetron HCl 8 mg tablet 8 mg PO TID PRN (Reason: Nausea And Vomiting) metoprolol succinate 100 mg tablet extended release 24 hr 100 mg PO DAILY levothyroxine 200 mcg tablet 200 mcg PO QAM losartan 100 mg tablet 100 mg PO DAILY Discontinued chlorthalidone 25 mg tablet 25 mg PO QAM Discharge Orders: Discharge Order (Routine); Ordered 02/25/24 Ordered By: Prieto Zaidi/Other Patient Handouts: What Is Gout, DASH Plan Eat Heart Healthy Food, ED Gout Diet Admission Data Admit Date/Time: 02/23/24 22:35 Attending Provider: Prieto Dc Admit Provider: Su Loo Primary Care Provider: Emily Marshall Other Providers: Su Loo Other Interventions: Discharge Summary Assessment (RN) Last Done: 02/25/24 12:15 Coding Diagnoses Acute gout of left foot M10.9 Hypertensive urgency I16.0 Hypothyroidism E03.9 Sleep apnea G47.30 Morbid obesity E66.01
== END 2024-02-25 13:18 | disposition home or self-care (01) | DRG 554 ==
LOC: ED 17:41 → SUATTDRO 22:35 → 2N 22:35